=== PATIENT | male | born 1995 | race Hispanic/Latino ===

== ENCOUNTER 2019-09-30 10:37 | Emergency (ER) | payer SELFPAY ==
[2019-09-30] MEDS ORDERED: KETOROLAC TROMETHAMINE 60 MG/2 ML VIAL ONE (11:19)
== END 2019-09-30 12:11 | disposition home or self-care (01) ==
LOC: EDH 10:37
DX: M25.522 Pain in left elbow (principal); Z72.0 Tobacco use
CPT/HCPCS: 73080; 96372; 99284; J1885